=== PATIENT | female | born 1955 | race Caucasian/White ===

== ENCOUNTER 2020-12-29 19:02 | Emergency (ER) | payer BC ==
[2020-12-29 19:35] VITALS: BP 158/65; PULSE 63; TEMP 98.5; BMI 24.7
[2020-12-29] MEDS ORDERED: KETOROLAC TROMETHAMINE 60 MG/2 ML VIAL IM ONE (20:36)
[2020-12-29] MEDS ORDERED: METHOCARBAMOL 500 MG TABLET PO ONE (20:36)
[2020-12-29] MEDS ORDERED: LIDOCAINE 5% TOPICAL PATCH TP ONE (20:37)
== END 2020-12-29 21:19 | disposition home or self-care (01) ==
LOC: JERFT 19:02
PROC: 3E0233Z Introduction of Anti-inflammatory into Muscle, Percutaneous Approach (ICD-10-PCS; principal; 2020-12-29)
DX: M54.42 Lumbago with sciatica, left side (principal)
CPT/HCPCS: 99283-25